=== PATIENT | male | born 1985 | race Caucasian/White ===

== ENCOUNTER 2016-10-08 11:19 | Emergency (ER) | payer OTHER ==
[~2016-10-08] VITALS: Ht 177.8 cm; Wt 136.0 kg
[~2016-10-08 11:19] MED LIST: Z.0.NO CURRENT MEDS
[2016-10-08 11:23] VITALS: BP 167/99; PULSE 122; RESP 20; TEMP 98; O2SAT 97
[2016-10-08] MEDS ORDERED: SODIUM CHLOR 0.9% 1000 ML INJ 1,000 ML IV SCH (11:57)
[2016-10-08] MEDS ORDERED: SODIUM CHLORIDE 0.9% FLUSH 5 ML FLUSH IVF PRN (12:00)
[2016-10-08] MEDS ORDERED: ONDANSETRON HCL 4 MG/2 ML VIAL IVP ONE (12:00)
[2016-10-08] MEDS ORDERED: MORPHINE SULFATE 4 MG/ML INJ IV PUSH ONE (12:00)
[2016-10-08 12:25] VITALS: BP 146/84; PULSE 97; RESP 20; O2SAT 99
[2016-10-08] MEDS ORDERED: VENTAER INH (12:28)
--- NOTE | 2016-10-08 12:28 | PD ---
HPI Chief Complaint: Abdominal Pain Time Seen by Provider: 11:41 Travel History International Travel<30 days: No Contact w/Intl Traveler<30days: No Traveled to known affect area: No History of Present Illness HPI Patient is a 31-year-old male who presents to emergency room with complaints of abdominal pain. Patient reports that for the past few days, he has had increased right upper quadrant pain after eating meals with associated nausea. Patient reports that symptoms have been persistent over the few days and became concerned. Patient reports that this morning, he had a bowel movement and noticed bright red blood after wiping himself. Reports no history of known hemorrhoids. Patient reports no fevers or chills. Patient reports no nausea or vomiting at this time. Patient denies constipation or diarrhea. PFSH Past Medical History High Cholesterol: Yes Diminished Hearing: No Respiratory: Yes (BRONCHITIS ) Immunizations Current: No Tetanus Vaccination: < 5 Years Influenza Vaccination: Yes Past Surgical History Tonsillectomy: Yes Family History Family History: Negative Social History Alcohol Use: No Tobacco Use: No Substance Use: No Allergies-Medications (Allergen,Severity, Reaction): Coded Allergies: No Known Allergies (Verified , 10/08/16) Reported Meds & Prescriptions Reported Meds & Active Scripts Active Reported Ventolin Hfa 18 GM Inh (Albuterol Sulfate) 90 Mcg/Act Aer 2 Puff INH Q4H PRN Review of Systems General / Constitutional: No: Fever Eyes: No: Visual changes HENT: No: Headaches Cardiovascular: No: Chest Pain or Discomfort Respiratory: No: Shortness of Breath Gastrointestinal: Positive: Nausea, Abdominal Pain, Hematochezia, No: Vomiting , Hematemesis, Constipation, Changes in Bowel Habits, Loss of Appetite Genitourinary: No: Dysuria Musculoskeletal: No: Pain Skin: No Rash Neurologic: No: Weakness Psychiatric: No: Depression Endocrine: No: Polydipsia Hematologic/Lymphatic: No: Easy Bruising Physical Exam Narrative GENERAL: No acute distress, nontoxic SKIN: Warm and dry. HEAD: Atraumatic. Normocephalic. EYES: No scleral icterus. No injection or drainage. ENT: No nasal bleeding or discharge. Mucous membranes pink and moist. NECK: Trachea midline. No JVD. CARDIOVASCULAR: Regular rate and rhythm. No murmur appreciated. RESPIRATORY: No accessory muscle use. Clear to auscultation. Breath sounds equal bilaterally. GASTROINTESTINAL: Abdomen soft, patient with increased tenderness to right upper quadrant, rectal exam performed with RN at bedside, patient with light stool, patient with heme positive stool MUSCULOSKELETAL: No obvious deformities. No clubbing. No cyanosis. No edema. NEUROLOGICAL: Awake and alert. Motor grossly within normal limits. Normal speech. PSYCHIATRIC: Appropriate mood and affect; insight and judgment normal. Data Data Last Documented VS Vital Signs Date Time Temp Pulse Resp B/P Pulse Ox O2 Delivery O2 Flow Rate FiO2 10/08/16 12:25 97 20 146/84 99 Room Air 10/08/16 11:23 98.0 Orders Complete Blood Count With Diff (10/08/16 11:57) Comprehensive Metabolic Panel (10/08/16 11:57) Lipase (10/08/16 11:57) Prothrombin Time / Inr (Pt) (10/08/16 11:57) Act Partial Throm Time (Ptt) (10/08/16 11:57) Us Abdomen Gallbladder (10/08/16 ) Iv Access Insert/Monitor (10/08/16 11:57) Morphine Inj (Morphine Inj) (10/08/16 12:00) Ondansetron Inj (Zofran Inj) (10/08/16 12:00) Sodium Chlor 0.9% 1000 Ml Inj (Ns 1000 M (10/08/16 11:57) Sodium Chloride 0.9% Flush (Ns Flush) (10/08/16 12:00) Labs Laboratory Tests Test 10/08/16 11:55 White Blood Count 10.5 TH/MM3 Red Blood Count 5.74 MIL/MM3 Hemoglobin 16.0 GM/DL Hematocrit 46.7 % Mean Corpuscular Volume 81.3 FL Mean Corpuscular Hemoglobin 27.9 PG Mean Corpuscular Hemoglobin 34.4 % Concent Red Cell Distribution Width 13.0 % Platelet Count 323 TH/MM3 Mean Platelet Volume 8.0 FL Neutrophils (%) (Auto) 59.1 % Lymphocytes (%) (Auto) 27.9 % Monocytes (%) (Auto) 9.2 % Eosinophils (%) (Auto) 3.2 % Basophils (%) (Auto) 0.6 % Neutrophils # (Auto) 6.2 TH/MM3 Lymphocytes # (Auto) 2.9 TH/MM3 Monocytes # (Auto) 1.0 TH/MM3 Eosinophils # (Auto) 0.3 TH/MM3 Basophils # (Auto) 0.1 TH/MM3 CBC Comment DIFF FINAL Differential Comment Prothrombin Time 9.8 SEC Prothromb Time International 0.9 RATIO Ratio Activated Partial 33.0 SEC Thromboplast Time Sodium Level 141 MEQ/L Potassium Level 4.5 MEQ/L Chloride Level 104 MEQ/L Carbon Dioxide Level 30.0 MEQ/L Anion Gap 7 MEQ/L Blood Urea Nitrogen 16 MG/DL Creatinine 0.94 MG/DL Estimat Glomerular Filtration 94 ML/MIN Rate Random Glucose 104 MG/DL Calcium Level 8.6 MG/DL Total Bilirubin 0.4 MG/DL Aspartate Amino Transf 38 U/L (AST/SGOT) Alanine Aminotransferase 69 U/L (ALT/SGPT) Alkaline Phosphatase 88 U/L Total Protein 7.7 GM/DL Albumin 4.2 GM/DL Lipase 263 U/L [facility] Medical Decision Making Medical Screen Exam Complete: Yes Emergency Medical Condition: Yes Interpretation(s) Vital Signs Date Time Temp Pulse Resp B/P Pulse Ox O2 Delivery O2 Flow Rate FiO2 10/08/16 11:23 98.0 122 20 167/99 97 Room Air CBC & BMP Diagram 10/08/16 11:55 Last Impressions Gall Bladder Ultrasound 10/08/16 0000 Signed Impressions: Service Date/Time: Saturday, October 08, 2016 12:28 - CONCLUSION: 1. Enlarged fatty liver. 2. Gallbladder sludge. Moisés Yanez MD Differential Diagnosis Acute cholecystitis, cholelithiasis, hemorrhoid, GI bleed, kidney stones Narrative Course Patient is a 31-year-old male who presents to the emergency room for evaluation of abdominal pain. Patient has been having intermittent right upper quadrant pain for the past few days after eating a meal with associated nausea. Patient with no fevers or chills at this time. Patient does have significant right upper quadrant pain upon palpation, does for lab work checked his LFTs, right upper quadrant ordered for further evaluation of possible acute cholecystitis versus cholelithiasis. Patient did have heme positive stools, stool is light brown in color, patient reports bright red blood after having a bowel movement, there are no external hemorrhoids on exam, patient may possibly have internal hemorrhoids which are not seen on exam. Discussed with patient that he most likely has internal hemorrhoids but will need to follow up with GI for colonoscopy versus anoscopy for definitive diagnosis Patient reevaluated, patient feeling much better. All labs and all studies reviewed patient in detail. Patient with sludge in gallbladder, no thickening of gallbladder or no signs of gall bladder stones. Signs and symptoms of acute abdomen reviewed patient. Discussed need for him to follow up with GI as outpatient as well as general surgery for his gallbladder. Patient will return to ER as needed Diagnosis Primary Impression: Sludge in gallbladder Additional Impressions: Abdominal pain Qualified Code: R10.11 - Right upper quadrant abdominal pain Fatty liver Referrals: Robbie Olivares MD, Saud El-sayed MD Patient Instructions: General Instructions Departure Forms: Tests/Procedures, Work Release Enter return to work date: Oct 11, 2016 Additional Instructions: Please provide patient a copy of his lab work at discharge Please return to ER as needed Please follow-up with her primary care doctor as well as GI and general surgery as needed Disposition: 01 DISCHARGE HOME Condition: Stable Alpa Sher DO Oct 08, 2016 12:28
[2016-10-08 12:30] LABS: AUTOMATED NEUTROPHIL # 6.2 TH/MM3 (1.8-7.7); BASOPHIL # 0.1 TH/MM3 (0-0.2); BASOPHIL % 0.6 % (0.0-2.0); EOSINOPHIL # 0.3 TH/MM3 (0-0.4); EOSINOPHIL % 3.2 % (0.0-4.0); HEMATOCRIT 46.7 % (39.0-51.0); HEMO FLAGS DIFF FINAL; LYMPH % 27.9 % (9.0-44.0); LYMPHOCYTE # 2.9 TH/MM3 (1.0-4.8); MEAN CELL VOLUME 81.3 FL (80.0-100.0); MEAN CORPUSCULAR HEMOGLOBIN 27.9 PG (27.0-34.0); MEAN CORPUSCULAR HGB CONC 34.4 % (32.0-36.0); MONO % 9.2 % (0.0-8.0); NEUT % 59.1 % (16.0-70.0); PLATELET COUNT 323 TH/MM3 (150-450); RED BLOOD COUNT 5.74 MIL/MM3 (4.50-5.90); WHITE BLOOD COUNT 10.5 TH/MM3 (4.0-11.0)
[2016-10-08 12:36] LABS: INTERNATIONAL NORMALIZED RATIO 0.9 RATIO; PROTHROMBIN TIME - PATIENT 9.8 SEC (9.8-11.6)
[2016-10-08 12:55] LABS: ALKALINE PHOSPHATASE 88 U/L (45-117); ALT (GPT) 69 U/L (12-78); ANION GAP 7 MEQ/L (5-15); AST (GOT) 38 U/L (15-37); BLOOD UREA NITROGEN 16 MG/DL (7-18); CHLORIDE 104 MEQ/L (98-107); GLOMERULAR FILTRATION RATE 94 ML/MIN (>89); POTASSIUM 4.5 MEQ/L (3.5-5.1); SODIUM (NA) 141 MEQ/L (136-145); TOTAL BILIRUBIN ADULT 0.4 MG/DL (0.2-1.0)
--- NOTE | 2016-10-08 13:11 | RADRPT ---
EXAM DATE/TIME: 10/08/2016 12:28 [facility] COMPARISON: No previous studies available for comparison. INDICATIONS : Right upper quadrant pain. MEDICAL HISTORY : Hypercholesterolemia. Bronchitis. SURGICAL HISTORY : Tonsillectomy. Left shoulder surgery x 2. ENCOUNTER: Initial ACUITY: 3 days PAIN SCORE: 5/10 LOCATION: Right upper quadrant MEASUREMENTS: LIVER: 17.1 cm length COMMON DUCT: 4 mm RIGHT KIDNEY: 12.2 x 6.4 x 6.1 cm FINDINGS: LIVER: The liver is enlarged and demonstrates mild diffuse fatty infiltration. No focal hepatic mass is note d. No biliary ductal dilatation is noted. There is hepatofugal flow within the portal vein. COMMON DUCT: No intraluminal mass or stone visualized. GALLBLADDER: Contains no stones, demonstrates no wall thickening or pericholecystic fluid. Sludge is noted within the gallbladder. PANCREAS: The head and body of the pancreas are increased in echogenicity but demonstrates no focal mass. The t ail is obscured by overlying bowel gas. RIGHT KIDNEY: No evidence of hydronephrosis, stone, or mass. CONCLUSION: 1. Enlarged fatty liver. 2. Gallbladder sludge. Moisés Yanez MD on October 08, 2016 at 13:08 Board Certified Radiologist. This report was verified electronically.
== END 2016-10-08 16:18 | disposition home or self-care (01) ==
LOC: NEPA 11:19
DX: R10.11 Right upper quadrant pain (principal)
CPT/HCPCS: 76705; 80053; 83690; 85025; 85610; 85730; 96360; 99284; J7030